=== PATIENT | female | born 1990 | race Caucasian/White ===

== ENCOUNTER 2023-03-10 15:39 | Emergency (ER) | payer MEDICAID ==
[~2023-03-10] VITALS: Ht 182.9 cm; Wt 77.7 kg
[2023-03-10 16:18] VITALS: TEMP 98
[2023-03-10] MEDS ORDERED: CefTRIAXone 500MG IM Kit w/LIDOcaine IM ONE (17:30)
[2023-03-10 17:42] LABS: BASOPHILS # (AUTO) 0.1 X10'3 (0-0.2); BASOPHILS % (AUTO) 0.5 % (0-1); EOSINOPHILS % (AUTO) 0.2 % (0-6); HEMATOCRIT 40.1 % (35.0-45.0); HEMOGLOBIN 13.8 g/dl (12.0-16.0); LYMPHOCYTES # (AUTO) 1.9 X10'3 (1.1-4.8); LYMPHOCYTES % (AUTO) 12.5 % (21-51); MEAN CORPUSCULAR HEMOGLOBIN 29.8 PG (27.0-31.0); MEAN CORPUSCULAR HGB CONC 34.4 g/dL (33.0-36.5); MEAN CORPUSCULAR VOLUME 86.5 FL (78-98); MEAN PLATELET VOLUME 9.6 FL (7.4-10.4); MONOCYTES # (AUTO) 0.9 X10'3 (0-0.9); MONOCYTES % (AUTO) 5.7 % (2-12); NEUTROPHILS # (AUTO) 12.4 X10'3 (1.8-7.7); NEUTROPHILS % (AUTO) 81.1 % (42-75); PLATELET COUNT 264 X10'3 (140-440); RED BLOOD COUNT 4.64 X10'6 (4.20-5.60); RED CELL DISTRIBUTION WIDTH 12.4 % (11.5-14.5); WHITE BLOOD COUNT 15.3 X10'3 (4.5-11.0)
[2023-03-10] MEDS ORDERED: DOXYCYCLINE 100MG CAPSULE PO STA (17:43)
[2023-03-10] MEDS ORDERED: TRAM50TA2 PO (17:46)
[2023-03-10] MEDS ORDERED: DOXY-1 PO (17:46)
[2023-03-10 17:55] VITALS: BP 116/72; PULSE 81; RESP 20; O2SAT 100
[2023-03-10 17:56] LABS: ALANINE AMINOTRANSFERASE 17 U/L (12-78); ALBUMIN 4.1 G/DL (3.4-5.0); ALBUMIN/GLOBULIN RATIO 1.1 (1.1-1.5); ALKALINE PHOSPHATASE 67 IU/L (46-116); ANION GAP 11 (8-16); ASPARTATE AMINO TRANSFERASE 7 U/L (10-37); BLOOD UREA NITROGEN 9 MG/DL (7-18); BUN/CREATININE RATIO 10.3 (10.0-20.0); CALCIUM 9.7 MG/DL (8.5-10.1); CHLORIDE 100 MMOL/L (99-107); CREATININE 0.87 MG/DL (0.40-0.90); GLUCOSE 103 MG/DL (70-104); POTASSIUM 3.7 MMOL/L (3.5-5.1); SODIUM 134 MMOL/L (135-145); TOTAL CARBON DIOXIDE 22.6 MMOL/L (24-32); TOTAL PROTEIN 7.8 G/DL (6.4-8.2); eCRCL 109 ML/MIN; eGFR 76 ML/MIN
== END 2023-03-10 18:42 | disposition home or self-care (01) ==
LOC: EDSEX 15:40 → ER 15:40
DX: N45.1 Epididymitis (principal); F64.0 Transsexualism
CPT/HCPCS: 36415; 76870; 80053; 85025; 93976; 96372; 99285; J0696

== ENCOUNTER 2023-03-21 23:03 | Emergency (ER) | payer MEDICAID ==
[~2023-03-21] VITALS: Ht 185.4 cm; Wt 83.0 kg
[~2023-03-21 23:03] MED LIST: DOXY-1 PO; TRAM50TA2 PO
[2023-03-21 23:07] VITALS: TEMP 97.1
[2023-03-22] MEDS ORDERED: HYDROcodone/acetaminophen 5mg/325mg tablet PO ONE (01:00)
[2023-03-22] MEDS ORDERED: LIDOCAINE 1%/EPI 1:100,000 inj. 10 ML multi-dose vial IJ ONE (01:10)
[2023-03-22] MEDS ORDERED: bacitracin 15gm ointment TP ONE (01:10)
--- NOTE | 2023-03-22 01:16 | NUR ---
dressing placed to coccyx. patient tolerated well. States has questions for MD. MD notified. MD at bedside.
[2023-03-22] MEDS ORDERED: CIPR-202 PO (01:18)
[2023-03-22] MEDS ORDERED: ciprofloxacin 250mg tablet PO ONE (01:20)
[2023-03-22] MEDS ORDERED: acetaminophen 325mg tablet PO ONE (01:20)
[2023-03-22 01:25] VITALS: BP 115/64; PULSE 88; RESP 17; O2SAT 98
== END 2023-03-22 01:32 | disposition home or self-care (01) ==
LOC: ER 23:04
DX: L05.91 Pilonidal cyst without abscess (principal); Z20.822 Contact with and (suspected) exposure to COVID-19; Z79.899 Other long term (current) drug therapy
CPT/HCPCS: 36415; 87811; 99284; A6266; J3490; A6449

== ENCOUNTER 2023-08-06 16:03 | Emergency (ER) | payer MEDICAID ==
[~2023-08-06] VITALS: Ht 182.9 cm; Wt 81.8 kg
[~2023-08-06 16:03] MED LIST changes: -DOXY-1 PO
[2023-08-06 17:10] LABS: BILIRUBIN,URINE NEGATIVE (Neg); CLARITY,URINE CLEAR (Clear); COLOR,URINE YELLOW (Yellow); GLUCOSE, URINE NEGATIVE (Neg); KETONES,URINE >=80 mg/dl (Neg); LEUKOCYTE ESTERASE ,URINE NEGATIVE (Neg); NITRITES, URINE NEGATIVE (Neg); OCCULT BLOOD,URINE NEGATIVE (Neg); PH,URINE 8.5 (4.8-8.0); PROTEIN,URINE NEGATIVE (Neg); UROBILINOGEN,URINE 0.2 E.U/dL (0.2-1.0)
[2023-08-06 17:14] LABS: UA COLLECTION TYPE CLN CATCH MIDSTREAM
[2023-08-06] MEDS: ondansetron/PF 4mg/2ml inj IV ONE (17:41)
[2023-08-06] MEDS: normal saline 1000ML IV soln IVB ONE (17:41)
[2023-08-06] MEDS: CefTRIAXone 1000mg IM Kit (w/lidocaine diluent) IM ONE (18:30)
[2023-08-06 19:13] LABS: BASOPHILS % (AUTO) 0.3 % (0-1); EOSINOPHILS % (AUTO) 0.1 % (0-6); HEMATOCRIT 35.7 % (35.0-45.0); HEMOGLOBIN 12.4 g/dl (12.0-16.0); LYMPHOCYTES % (AUTO) 6.2 % (21-51); MEAN CORPUSCULAR HEMOGLOBIN 30.3 PG (27.0-31.0); MEAN CORPUSCULAR HGB CONC 34.8 g/dL (33.0-36.5); MEAN CORPUSCULAR VOLUME 87.1 FL (78-98); MEAN PLATELET VOLUME 9.8 FL (7.4-10.4); MONOCYTES # (AUTO) 0.7 X10'3 (0-0.9); MONOCYTES % (AUTO) 4.3 % (2-12); NEUTROPHILS # (AUTO) 13.8 X10'3 (1.8-7.7); NEUTROPHILS % (AUTO) 89.1 % (42-75); PLATELET COUNT 220 X10'3 (140-440); RED CELL DISTRIBUTION WIDTH 12.1 % (11.5-14.5); WHITE BLOOD COUNT 15.5 X10'3 (4.5-11.0)
[2023-08-06] MEDS: ketorolac trometh. 30mg/ml inj. IV ONE (19:13)
[2023-08-06] MEDS: ketorolac tromethamine 15mg/ml inj. IV ONE (19:22)
[2023-08-06 19:27] LABS: ALBUMIN 3.2 G/DL (3.4-5.0); ANION GAP 13 (8-16); BLOOD UREA NITROGEN 11 MG/DL (7-18); BUN/CREATININE RATIO 12.1 (10.0-20.0); CALCIUM 8.4 MG/DL (8.5-10.1); CHLORIDE 108 MMOL/L (99-107); CREATININE 0.91 MG/DL (0.40-0.90); GLUCOSE 92 MG/DL (70-104); LIPASE 48 U/L (16-77); POTASSIUM 3.4 MMOL/L (3.5-5.1); SODIUM 141 MMOL/L (135-145); TOTAL CARBON DIOXIDE 20.4 MMOL/L (24-32); eCRCL 103 ML/MIN; eGFR 72 ML/MIN
[2023-08-06 20:04] VITALS: BP 109/64; PULSE 88; RESP 20; TEMP 98.3; O2SAT 100
[2023-08-09 14:25] LABS: CHLAMYDIA TRACHOMATIS, NAA Negative (Negative)
== END 2023-08-06 19:29 | disposition home or self-care (01) ==
LOC: ER 16:03
DX: R10.32 Left lower quadrant pain (principal); Z79.899 Other long term (current) drug therapy
CPT/HCPCS: 36415; 74176; 76870; 80048; 81003; 83690; 85025; 87491; 87591; 93976; 96361; 96372; 96374; 96375; 99285; J0696; J1885; J2405; J7030

== ENCOUNTER 2025-01-28 09:49 | Emergency (ER) | payer MEDICAID ==
[~2025-01-28] VITALS: Ht 182.9 cm; Wt 81.8 kg
[2025-01-28] MEDS ORDERED: ESTR2TAB6 PO (10:25)
[2025-01-28] MEDS ORDERED: SPIR100T5 PO (10:25)
[2025-01-28] MEDS ORDERED: FINA5TAB11 PO (10:25)
[2025-01-28] MEDS ORDERED: PROG200C11 PO (10:25)
[2025-01-28] MEDS ORDERED: ESCI5TAB17 PO (10:25)
[2025-01-28 10:29] LABS: LEUKOCYTE ESTERASE ,URINE NEGATIVE (Neg); NITRITES, URINE NEGATIVE (Neg); OCCULT BLOOD,URINE NEGATIVE (Neg)
[2025-01-28 10:30] LABS: URINE HCG NEGATIVE (NEG)
--- NOTE | 2025-01-28 10:30 | Physician Documentation ---
History of Present Illness ~ Chief Complaint: 5150 Stated Complaint: Time Seen by MD: 10:26 HPI 34-year-old person presenting with suicidal ideation History is very limited from the patient. They repeatedly tell me that they want to . They report nobody cares about me, I just want to be . They ask can you give me a lethal injection? Police brought the patient in on a 5150 hold, after the patient reportedly ask them to shoot them with a gun. The patient does report a history of suicide attempt in the past but does not specify what it was. History otherwise limited Medication Reconciliation Allergies: Coded Allergies: No Known Allergies (Unverified , 03/21/23) Scheduled Escitalopram Oxalate (Escitalopram Oxalate), 1 TAB PO DAILY, (Reported) Estradiol (Estradiol), 6 MG PO DAILY, (Reported) Finasteride (Finasteride), 1 TAB PO DAILY, (Reported) Progesterone,Micronized (Progesterone), 1 CAP PO HS, (Reported) Spironolactone (Spironolactone), 1 TAB PO BID, (Reported) Discontinued Medications Tramadol HCl (Tramadol HCl), 1 TABLET PO Q6H PRN for pain Discontinued Reason: patient no longer taking Past Medical History Past Medical History: No Pertinent History Past Surgical History: no surgical history Lives In: Home Review of Systems Constitutional: Denies: fever Gastrointestinal: Denies: abdominal pain Psychiatric: Reports: suicidal Physical Exam Vital Signs: Temperature: 98.0, Source: Temporal, Heart Rate: 78, Respiratory Rate: 16, BP: 131/82, Pulse Oximetry: 98, Weight: 81.820 Oxygen Flow Rate: 0 Physical Exam General: This is a thin young person lying in bed, does not appear in distress HEENT: Atraumatic, oropharynx appears dry Heart: Regular rate, normal-appearing peripheral perfusion Lungs: normal work of breathing, normal oxygen saturation on room air Extremities: Warm and well-perfused, no traumatic findings Neuro: Alert and oriented to self and location Psychiatric: The patient has a flattened affect, repeatedly make suicidal statements with specific plans, does not appear to be responding to internal stimuli Progress Results/Orders Results/Orders Orders - BRENDA MACIAS MD Med Rec (01/28/25 09:55) Close Observation Level (01/28/25 09:55) Covid19 Binax Poc Result Entry (01/28/25 09:55) Regular Diet (01/28/25 Lunch) Finasteride Tablet (Proscar Tablet) (01/29/25 08:00) Estradiol Tablet (Estrace Tablet) (01/29/25 08:00) Progesterone, Micronized Cap (Prometrium (01/28/25 21:00) Ct Head (01/28/25 11:17) Spironolactone Tablet (Aldactone Tablet) (01/28/25 20:17) Escitalopram 10 Mg Tablet (Lexapro 10mg (01/29/25 08:51) Completed Orders - BRENDA MACIAS MD Cbc/Diff (01/28/25 09:55) Hcg, Ur Ql (01/28/25 09:55) Drug Screen, Urine (01/28/25 09:55) Ethanol (01/28/25 09:55) TSH (01/28/25 09:55) BMP (01/28/25 09:55) Ua With Microscopic (01/28/25 10:12) Escitalopram 10 Mg Tablet (Lexapro 10mg (01/29/25 08:00) Spironolactone Tablet (Aldactone Tablet) (01/28/25 20:00) Ct Head (01/28/25 11:17) Estradiol Tablet (Estrace Tablet) (01/28/25 14:50) Medications Received in ER Medications (Trade) Dose Ordered Sig/Nuria Route PRN Reason Start Time Stop Time Status Last Admin Dose Admin (Proscar tablet) 5 mg DAILY PO 01/29/25 08:00 01/29/25 08:59 5 MG (Lexapro 10mg tablet) 5 mg DAILY PO 01/29/25 08:00 01/29/25 08:51 DC 01/28/25 21:08 5 MG (Estrace tablet) 6 mg DAILY PO 01/29/25 08:00 01/29/25 08:59 6 MG Vital Signs 01/28/25 01/28/25 01/28/25 01/28/25 09:53 14:39 19:00 21:47 Temp 98.0 98.0 Pulse 78 86 Resp 16 16 18 14 B/P (MAP) 131/82 128/78 (95) Pulse Ox 98 98 O2 Flow Rate 0 0 01/29/25 08:42 B/P (MAP) Laboratory Tests Test 01/28/25 10:09 01/28/25 10:12 01/28/25 10:24 01/28/25 10:28 SARS-CoV-2 Antigen (Rapid) Negative Urine Specimen Description Cln catch midstream Urine Color Yellow Urine Clarity Slightly cloudy Urine pH 6.0 Urine Specific [place] >=1.030 Urine Protein Trace Urine Glucose (UA) Negative Urine Ketones Trace H Urine Occult Blood Negative Urine Nitrite Negative Urine Bilirubin Small Urine Urobilinogen 0.2 Urine Leukocyte Esterase Negative Urine RBC 0-2 Urine WBC 0-4 Urine Squamous Epithelial Cells Many Urine Bacteria Few Urine Mucus Moderate Volume Urine Centrifuged 10 ml Urine HCG, Qualitative Negative Urine Comment Urine Opiates Screen Negative Urine Methadone Screen Negative Urine Fentanyl Screen Negative Urine Barbiturates Screen Negative Urine Phencyclidine Screen Negative Urine Amphetamines Screen Negative Urine Benzodiazepines Screen Negative Urine Cocaine Screen Negative Urine Cannabinoids Screen Positive Drug Screen Comment Sodium Level 139 Potassium Level 3.9 Chloride Level 103 Carbon Dioxide Level 27.1 Anion Gap 9 Blood Urea Nitrogen 13 Creatinine 0.79 Estimated GFR/1.73 m2 84 BUN/Creatinine Ratio 16.5 Glucose Level 112 H Calcium Level 9.5 Albumin 3.9 Thyroid Stimulating Hormone (TSH) 4.32 Chemistry Comments Ethyl Alcohol Level < 10 White Blood Count 18.1 H Red Blood Count 4.53 Hemoglobin 13.4 Hematocrit 39.1 Mean Corpuscular Volume 86.5 Mean Corpuscular Hemoglobin 29.7 Mean Corpuscular Hemoglobin Concent 34.3 Red Cell Distribution Width 12.6 Platelet Count 290 Mean Platelet Volume 9.6 Neutrophils (%) (Auto) 82.8 H Lymphocytes (%) (Auto) 11.4 L Monocytes (%) (Auto) 5.2 Eosinophils (%) (Auto) 0.1 Basophils (%) (Auto) 0.5 Neutrophils # (Auto) 15.0 H Lymphocytes # (Auto) 2.1 Monocytes # (Auto) 0.9 Eosinophils # (Auto) 0.0 Basophils # (Auto) 0.1 CBC Comment Re-Evaluation Re-Evaluation : Re-Evaluation Time: 11:47 Re-Evaluation: Unchanged Progress The patient is medically cleared for mental health evaluation. Consults/PCP Consults/PCP : Additional Comment Consult: Mental health team consulted for evaluation Mental health team evaluated the patient, and recommended discharge to respite care Medical Decision Making Differential Dx:Considerations: Include: Alcohol abuse, Anxiety, Bipolar disorder, Conversion disorder, Depression, Substance abuse, Suicidal Differential Diagnosis The patient presents with suicidal ideation, including trying to ask a presidential helicopter crew chief to shoot them with a gun. Here in the ED they continued to report suicidal ideation. Mental screening labs were unremarkable. There was no evidence of an acute medical or surgical emergency at this time. The patient was cleared for mental health evaluation. Pending evaluation. The patient was evaluated by the mental health team. Plan is for discharge to respite care. Departure Time of Disposition: 14:45 Impression: Primary Impression: Suicidal ideation Condition: Stable Discharge Instructions: Suicidal Feelings: How to Help Yourself Additional Instructions: Transfer orders for [facility]: At this time there is no evidence of an emergent medical condition that would preclude (admission/transfer) to a psychiatric unit via [facility] protocol for further psychiatric, as well as medical evaluation and treatment. At this time I have no reason to believe that transfer via [facility] protocol would have serious medical compromise in the patient's health. Referrals: NO PRIMARY CARE PROVIDER (PCP) Education Educated: Patient Signature Scribe Signature: harvey Attestation: BRENDA Delacruz MD Jan 28, 2025 10:30
[2025-01-28 10:33] LABS: UA COLLECTION TYPE CLN CATCH MIDSTREAM
[2025-01-28 10:34] LABS: MUCUS STRANDS MODERATE /LPF (Neg); SQUAMOUS EPITHELIAL CELL,UR MANY /LPF (FEW)
[2025-01-28 10:35] LABS: URINE AMPHETAMINE SCREEN NEGATIVE (Neg); URINE BARBITUATE SCREEN NEGATIVE (Neg); URINE BENZODIAZEPINES SCREEN NEGATIVE (Neg); URINE CANNABINOID SCREEN POSITIVE (Neg); URINE COCAINE SCREEN NEGATIVE (Neg); URINE METHADONE SCREEN NEGATIVE (Neg); URINE OPIATE SCREEN NEGATIVE (Neg); URINE PHENCYCLIDINE SCREEN NEGATIVE (Neg)
[2025-01-28 10:39] LABS: MEAN PLATELET VOLUME 9.6 FL (7.4-10.4); RED CELL DISTRIBUTION WIDTH 12.6 % (11.5-14.5)
[2025-01-28 11:03] LABS: CREATININE 0.79 MG/DL (0.40-0.90); TOTAL CARBON DIOXIDE 27.1 MMOL/L (24-32); eCRCL 118 ML/MIN; eGFR 84 ML/MIN
[2025-01-28 11:09] LABS: ETHANOL < 10 MG/DL (<10)
--- NOTE | 2025-01-28 11:40 | RADIOLOGY REPORT ---
CT brain without contrast CLINICAL INDICATION: head injury, headache FINDINGS: The study was performed in a multidetector scanner. This study performed taking axial images from the skull base up to the vertex. Both brain and bone windows are photographed. Dose lowering techniques have been used including automated exposure control and adjustment of mA and/or KV according to patient size. Normal and symmetrical shape and density of brain parenchyma above and below the tentorium is seen. There is no mass, midline shift or hydrocephalus. No intra/extra-axial collections demonstrated. There is no intracranial hemorrhage. The calvarium is intact. IMPRESSION: 1. Normal brain and skull. Computed Tomographic Radiation Dosimetry Report: Total CTDI vol = 68 mGy Total DLP = 1181 mGy-cm All CT scans at this medical facility are performed using dose modulation techniques as appropriate to a performed exam including the following: Automated exposure control was utilized; adjustment of the MA and/or KvP according to patient size; and use of iterative reconstruction technique.
[2025-01-28] MEDS: progesterone, micronized 100mg capsule PO SCH (21:07)
[2025-01-28] MEDS: ESCITALOPRAM 10 mg tablet 10 MG TABLET PO SCH (21:08)
[2025-01-29] MEDS ORDERED: ESCITALOPRAM 10 mg tablet 10 MG TABLET PO SCH (08:51)
[2025-01-29 14:46] VITALS: BP 128/78; PULSE 86; RESP 18; TEMP 98; O2SAT 98
== END 2025-01-29 14:50 ==
LOC: ER 09:50
DX: R45.851 Suicidal ideations (principal); R51.9 Headache, unspecified; Z79.899 Other long term (current) drug therapy; Z20.822 Contact with and (suspected) exposure to COVID-19
CPT/HCPCS: 36415; 70450; 80048; 80305; 80320; 81001; 81025; 84443; 85025; 87811; 99285; A4615